=== PATIENT | male | born 2000 | race Caucasian/White ===

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

== ENCOUNTER 2022-05-06 19:47 | Emergency (ER) | payer BC ==
[~2022-05-06 19:47] MED LIST changes: +SILVER SULFA1 % EX
[2022-05-06 21:44] VITALS: BP 120/81
== END 2022-05-06 21:46 | disposition home or self-care (01) | DRG 159 ==
LOC: ED
PROC: 0HQ1XZZ Repair Face Skin, External Approach (ICD-10-PCS; principal; 2022-05-06)
DX: S01.511A Laceration without foreign body of lip, initial encounter (principal); S00.83XA Contusion of other part of head, initial encounter; X58.XXXA Exposure to other specified factors, initial encounter; Y93.83 Activity, rough housing and horseplay; Y92.009 Unspecified place in unspecified non-institutional (private) residence as the place of occurrence of the external cause